=== PATIENT | female | born 1980 | race Caucasian/White ===

== ENCOUNTER 2020-09-28 09:53 | Outpatient (NON) | payer BC, SELFPAY ==
[2020-09-28 21:15] LABS: SARS-CoV-2 RNA PCR Negative
== END 2020-09-28 09:54 ==
PROVIDERS: PCP Family Medicine; Visit Provider Physician Assistant
DX: Z20.828 Contact with and (suspected) exposure to other viral communicable diseases (principal); R50.9 Fever, unspecified
CPT/HCPCS: 87635; C9803; U0003

== ENCOUNTER 2020-12-20 13:58 | Outpatient (CLI) | payer BC, SELFPAY ==
[2020-12-20 14:39] LABS: Basophils Absolute Auto 0.1 K/mm3 (0.0-0.1); Basophils Percent Auto 0.7 % (0.2-1.2); Eosinophils Absolute Auto 0.2 K/mm3 (0-0.3); Eosinophils Percent Auto 1.5 % (0-4.4); Hematocrit 37.5 % (37.0-47.0); Hemoglobin 11.8 g/dL (12.0-15.0); Immature Granulocyte Absolute 0.06 K/mm3 (0.00-0.031); Immature Granulocyte Percent A 0.6 % (0-0.5); Lymphocytes Absolute Auto 1.78 K/mm3 (0.9-3.2); Lymphocytes Percent Auto 16.7 % (18.3-44.2); Mean Corpuscular HGB Conc 31.5 g/dl (32-36); Mean Corpuscular Hemoglobin 26.3 pg (26-34); Mean Corpuscular Volume 83.7 fl (80-100); Mean Platelet Volume 9.4 fl (7.4-10.4); Monocytes Absolute Auto 0.4 K/mm3 (0.1-0.6); Monocytes Percent Auto 4.1 % (2.6-8.5); Neutrophils Absolute Auto 8.1 K/mm3 (1.3-6.7); Neutrophils Percent Auto 76.4 % (45.5-73.1); Platelet Count Result 327 k/mm3 (150-375); Red Blood Count 4.48 M/mm3 (4.2-5.4); Red Cell Distribution Width 15.8 % (11.5-14.5); White Blood Count 10.6 K/mm3 (4.5-10.0)
[2020-12-20 14:42] LABS: Add Urine Microscopic? NO; Appearance Urine Clear (Clear); Bilirubin Urine Negative (Negative); Blood Urine Negative (Negative); Color Urine Yellow (Yellow); Glucose Urine UA Negative (Negative); Ketones Urine Negative (Negative); Leukocyte Esterase Ur Negative LEU/UL (Negative); Nitrate Urine Negative (Negative); Protein Urine Negative (Negative); Specific Grav Ur 1.009 (1.001-1.035); Urobilinogen Urine Negative mg/dL (<2.0)
[2020-12-20 15:52] LABS: Alanine Aminotransferase 12 U/L (4-35); Alkaline Phosphatase 94 U/L (38-126); Anion Gap 7 mmol/L (8-16); Aspartate Amino Transferase 19 U/L (14-36); Bilirubin,Total 0.4 mg/dL (0.2-1.3); Blood Urea Nitrogen 7 mg/dL (7-17); Carbon Dioxide 28 mmol/L (22-30); Chloride 99 mmol/L (98-107); Estimated Glomerular Filt Rate > 60; Glucose 90 mg/dL (65-105); Potassium 3.9 mmol/L (3.4-5.0); Sodium 134 mmol/L (137-145)
[2020-12-20 16:32] LABS: SARS-CoV-2 IgG Non-Reactive (NonReactive)
== END 2020-12-20 13:59 | disposition home or self-care (01) ==
LOC: ANHLAB 14:00
PROVIDERS: PCP Physician Assistant; Visit Provider Physician Assistant
DX: R50.9 Fever, unspecified (principal)
CPT/HCPCS: 36415; 80053; 81003; 85025; 86769

== ENCOUNTER 2021-01-24 14:39 | Outpatient (CLI) | payer BC, SELFPAY ==
--- NOTE | 2021-01-25 16:59 | WPDPFTINT ---
PFT Interpretation This is a pulmonary function test with spirometry, plethysmography and diffusing capacity. The test was performed and results interpreted in accordance with the 2019 and 2005 ATS/ERS Task Force guidelines respectively using the Global Lung Function Initiative-2012 reference equations. Quality of the pre bronchodilator spirometry maneuver was Grade A. Findings: Spirometry: The contour the is good inspiratory and expiratory flow tracing are normal. The FVC is 3.26 L, 79% predicted. The FEV1 is 2.55 L, 77% predicted. The FEV1: FVC ratio is 78%. Plethysmography: The total lung capacity is 4.15 L, 75% predicted. The functional residual capacity is 2.05 L, 66% predicted. The residual volume is 0.89 L, 50% predicted. Diffusing capacity: The absolute diffusion capacity is 19.4, 77% predicted. The diffusing capacity corrected for alveolar volume is 4.69, 102% predicted. Impression: There is a mild severe restrictive ventilatory abnormality. The spirometry is normal without evidence of an obstructive abnormality. The diffusing capacity is normal. There are no prior studies for comparison
== END 2021-01-24 14:40 | disposition home or self-care (01) ==
PROVIDERS: PCP Physician Assistant; Visit Provider Physician Assistant
DX: R05 Cough (principal); R94.2 Abnormal results of pulmonary function studies
CPT/HCPCS: 94375; 94726; 94729

== ENCOUNTER 2025-10-25 11:01 | Outpatient (CLI) | payer OTHER, SELFPAY ==
--- NOTE | 2025-10-25 11:40 | NEURO_ITS ---
Impression: # Complains of hand numbness/nocturnal paresthesia. ? # Left Ulnar Neuropathy across the elbow. ? # No Carpal Tunnel Syndrome. ? # Normal Needle/ EMG exam. Nerve Conduction Studies ?Stim Site NR Peak (ms) P-T Amp (?V) Site1 Site2 Delta-P (ms) Dist (cm) Tonny (m/s) Left Median Anti Sensory (2-3nd Digit) Wrist ? 2.7 54.8 Wrist 2-3nd Digit 2.7 14.0 52 Wrist ? 2.8 52.8 Wrist 2-3nd Digit 2.7 14.0 52 Right Median Anti Sensory (2-3nd Digit) Wrist ? 2.7 49.9 Wrist 2-3nd Digit 2.7 14.0 52 Wrist ? 2.7 50.4 Wrist 2-3nd Digit 2.7 14.0 52 Left Radial Anti Sensory (Base 1st Digit) Wrist ? 1.7 24.6 Wrist Base 1st Digit 1.7 0.0 Right Radial Anti Sensory (Base 1st Digit) Wrist ? 1.9 22.6 Wrist Base 1st Digit 1.9 0.0 Left Ulnar Anti Sensory (5th Digit) Wrist ? 2.4 59.2 Wrist 5th Digit 2.4 14.0 58 Right Ulnar Anti Sensory (5th Digit) Wrist ? 2.2 58.5 Wrist 5th Digit 2.2 14.0 64 ?Stim Site NR Onset (ms) O-P Amp (mV) Site1 Site2 Delta-0 (ms) Dist (cm) Tonny (m/s) Left Median Motor (Abd Poll Brev) Wrist ? 2.7 3.2 Elbow Wrist 5.0 29.0 58 Elbow ? 7.7 4.1 Right Median Motor (Abd Poll Brev) Wrist ? 2.7 4.9 Elbow Wrist 5.3 29.0 55 Elbow ? 8.0 11.7 Left Ulnar Motor (Abd Dig Minimi) Wrist ? 2.3 9.8 A Elbow Wrist 5.5 30.0 55 A Elbow ? 7.8 8.5 B Elbow Wrist 3.3 23.0 70 B Elbow ? 5.6 7.9 Right Ulnar Motor (Abd Dig Minimi) Wrist ? 2.3 14.0 A Elbow Wrist 5.1 30.0 59 A Elbow ? 7.4 11.1 B Elbow Wrist 3.8 22.0 58 B Elbow ? 6.1 10.6 F Wave Studies ?NR F-Lat (ms) L-R F-Lat (ms) Left Median (Mrkrs) (Abd Poll Brev) ? 26.53 1.89 Right Median (Mrkrs) (Abd Poll Brev) ? 28.42 1.89 Left Ulnar (Mrkrs) (Abd Dig Min) ? 28.59 2.48 Right Ulnar (Mrkrs) (Abd Dig Min) ? 26.12 2.48 Electromyography ?Side Muscle Nerve Root Ins Act Fibs Amp Dur Recrt Comment Right 1stDorInt Ulnar C8-T1 Nml Nml Nml Nml Nml Right Ext Indicis Radial (Post Int) C7-8 Nml Nml Nml Nml Nml Right Ext Digitorum Radial (Post Int) C7-8 Nml Nml Nml Nml Nml Right BrachioRad Radial C5-6 Nml Nml Nml Nml Nml Right PronatorTeres Median C6-7 Nml Nml Nml Nml Nml Right Abd Poll Brev Median C8-T1 Nml Nml Nml Nml Nml Right ABD Dig Min Ulnar C8-T1 Nml Nml Nml Nml Nml Right FlexPolLong Median (Ant Int) C7-8 Nml Nml Nml Nml Nml Right Abd Poll Long Radial (Post Int) C7-8 Nml Nml Nml Nml Nml Left 1stDorInt Ulnar C8-T1 Nml Nml Nml Nml Nml Left Ext Indicis Radial (Post Int) C7-8 Nml Nml Nml Nml Nml Left Ext Digitorum Radial (Post Int) C7-8 Nml Nml Nml Nml Nml Left BrachioRad Radial C5-6 Nml Nml Nml Nml Nml Left PronatorTeres Median C6-7 Nml Nml Nml Nml Nml Left Abd Poll Brev Median C8-T1 Nml Nml Nml Nml Nml Left ABD Dig Min Ulnar C8-T1 Nml Nml Nml Nml Nml Left FlexPolLong Median (Ant Int) C7-8 Nml Nml Nml Nml Nml Left Abd Poll Long Radial (Post Int) C7-8 Nml Nml Nml Nml Nml
== END 2025-10-25 11:02 | disposition home or self-care (01) ==
LOC: ANHNEURO 11:08
PROVIDERS: PCP Physician Assistant; Visit Provider Physician Assistant
DX: G56.22 Lesion of ulnar nerve, left upper limb (principal)
CPT/HCPCS: 95886; 95911